=== PATIENT | female | born 1990 | race Caucasian/White ===

== ENCOUNTER 2017-01-22 14:34 | Emergency (ER) | payer OTHER ==
[~2017-01-22] VITALS: Ht 157.5 cm; Wt 76.0 kg
[~2017-01-22 14:34] MED LIST: METFORMIN; NO NEW MEDS
[2017-01-22 14:38] VITALS: Ht 157.5 cm; Wt 76.0 kg
[2017-01-22] MEDS ORDERED: ACETAMINOPHEN 325 MG TAB PO STA (15:42)
[2017-01-22 15:58] LABS: ADD SCAN DIFF NO
[2017-01-22 16:00] LABS: BASOPHILS % 0.4 % (0.0-2.0); EOSINOPHILS # 0.1 10^3/ul (0.0-0.5); EOSINOPHILS % 0.7 % (0.0-7.0); HEMATOCRIT 35.8 % (37.0-47.0); HEMOGLOBIN 13.1 g/dl (12.0-16.0); LYMPHOCYTES # 2.4 10^3/ul (0.8-2.9); LYMPHOCYTES % 33.1 % (15.0-51.0); MEAN CORPUSCULAR HEMOGLOBIN 31.8 pg (29.0-33.0); MEAN CORPUSCULAR HGB CONC 36.6 g/dl (32.0-37.0); MEAN CORPUSCULAR VOLUME 86.9 fl (82.0-101.0); MEAN PLATELET VOLUME 11.7 fl (7.4-10.4); MONOCYTE # 0.4 10^3/ul (0.3-0.9); MONOCYTES % 5.3 % (0.0-11.0); NEUTROPHIL # 4.4 10^3/ul (1.6-7.5); NEUTROPHILS % 60.2 % (39.0-77.0); PLATELET COUNT 264 10^3/UL (140-415); RED BLOOD COUNT 4.12 10^6/ul (4.20-5.40); WHITE BLOOD COUNT 7.2 10^3/ul (4.8-10.8)
[2017-01-22 16:08] LABS: ADD UMIC YES; UR ASCORBIC ACID NEGATIVE (NEGATIVE); UR BILIRUBIN (Dip) NEGATIVE (NEGATIVE); UR BLOOD (Dip) 2+ mg/dL (NEGATIVE); UR CLARITY CLEAR (CLEAR); UR COLOR STRAW (YELLOW); UR GLUCOSE (Dip) 3+ mg/dL (NEGATIVE); UR KETONES (Dip) NEGATIVE (NEGATIVE); UR LEUKOCYTE ESTERASE (Dip) TRACE Leu/ul (NEGATIVE); UR NITRITE (Dip) NEGATIVE (NEGATIVE); UR RBC 1 /HPF (0-5); UR SPECIFIC GRAVITY (Dip) 1.031 (1.003-1.030); UR SQUAMOUS EPITHELIAL CELL FEW /HPF (FEW); UR TOTAL PROTEIN (Dip) NEGATIVE (NEGATIVE); UR UROBILINOGEN (Dip) NEGATIVE (NEGATIVE)
--- NOTE | 2017-01-22 16:40 | RADRPT ---
PROCEDURE: OB Ultrasound. CLINICAL INDICATION: Positive test. Vaginal bleeding. TECHNIQUE: Ultrasound of the pelvis was performed with transabdominal and transvaginal sonography in the axial and sagittal planes. COMPARISON: No prior study is available for comparison. FINDINGS: There is no intrauterine gestational sac. The uterus measures 7.9 x 4.2 x 4.9 cm. Endometrial thic kness is 7.5 mm. There is no uterine enlargement or mass. The right ovary is not visualized. The left ovary appears normal measuring 3.3 x 2.8 x 3.0 cm. Color Doppler and pulsed Doppler sonography demonstrate normal flow to the left ovary There is no other pelvic mass or free fluid. IMPRESSION: 1. No intrauterine gestational sac. If the patient has a positive test, ectopic gestatio n cannot be excluded. 2. Right ovary not visualized. 3. Otherwise unremarkable study. RPTAT: QQ .Chris Shin MD, MD Date Time Electronically viewed and signed by .Chris Shin MD, MD on 01/22/2017 16:40 .R/
[2017-01-22 17:19] LABS: ALBUMIN 4.7 g/dl (3.3-4.9); ALBUMIN/GLOBULIN RATIO 1.74; BILIRUBIN,INDIRECT 0.2 mg/dl (0-1.1); BILIRUBIN,TOTAL 0.2 mg/dl (0.2-1.3); CREATININE 0.58 mg/dl (0.44-1.00); TOTAL PROTEIN 7.4 g/dl (6.1-8.1)
[2017-01-22] MEDS ORDERED: INSULIN LISPRO 100 UNIT/ML VIAL SC STA (17:27)
[2017-01-22] MEDS ORDERED: SOD CHLORIDE 0.9% 1,000 ML IV ONE (17:30)
--- NOTE | 2017-01-22 17:36 | ERD ---
ER Documentation Chief Complaint Date/Time DATE: 01/22/17 TIME: 17:31 Chief Complaint 3 weeks with spotting HPI Patient is a 26-year-old female who states she is who presents to the ED with vaginal bleeding 1 day. She states that she had a test done at home 2 weeks ago and showed a positive test however she has not followed up with an OB doctor. She also complains of mild pelvic pain. She states that she had sexual intercourse yesterday and developed bleeding afterwards. However she states that today her bleeding has decreased with spotting. Patient states that she has a history of gestational diabetes but does not have current diabetes denies polyuria, polydipsia or polyphagia. Denies chest pain or cough or shortness of breath. Denies abdominal pain, nausea, vomiting or diarrhea ROS All systems reviewed and are negative except as per history of present illness. Medications Home Meds Active Scripts Metformin* (Glucophage*) 500 Mg Tab, 500 MG PO BID, #20 TAB Prov:TITO ALVARENGA PA-C 01/22/17 Reported Medications [No New Meds] No Conflict Check 04/29/11 [Metformin] No Conflict Check 04/09/11 Allergies Allergies: Coded Allergies: No Known Allergy (Verified Allergy, Unknown, 04/29/11) PMhx/Soc History of Surgery: Yes ([facility]) Anesthesia Reaction: No Hx Neurological Disorder: No Hx Respiratory Disorders: No Hx Cardiac Disorders: No Hx Psychiatric Problems: No Hx Miscellaneous Medical Probl: No Hx Alcohol Use: No Hx Substance Use: No Hx Tobacco Use: No Smoking Status: Never smoker FmHx Family History: No coronary disease, No diabetes, No other Physical Exam Vitals Vital Signs Date Time Temp Pulse Resp B/P Pulse Ox O2 Delivery O2 Flow Rate FiO2 01/22/17 14:38 98.1 90 18 131/82 99 Physical Exam GENERAL: Well-developed, well-nourished female. Appears in no acute distress. HEAD: Normocephalic, atraumatic. EYES: Pupils are equally reactive bilaterally. EOMs grossly intact. No conjunctival erythema. ENT: Moist mucous membranes. No uvula deviation. No kissing tonsils. No exudates. NECK: Supple. No lymphadenopathy or thyromegaly. No meningismus. negative kernig. negative brudinski. LUNG: Clear to auscultation bilaterally. No rhonchi, wheezing, rales or coarse breath sounds. HEART: Regular rate and rhythm. No murmurs, rubs or gallops. ABDOMEN: No scars, ecchymosis or rashes noted. Soft, nontender, and nondistended. Positive bowel sounds in all four quadrants. No rebound tenderness , no guarding. (-) McBurneys point tenderness. No CVA tenderness. Mild bilateral pelvic pain BACK: No midline tenderness. Extremities: Equal pulses bilaterally. No peripheral clubbing, cyanosis or edema. No unilateral leg swelling. NEUROLOGIC: Alert and oriented. Moving all four extremities. 5/5 strength in all extremities. Normal speech. Steady gait. SKIN: Normal color. Warm and dry. No rashes or lesions. Capillary refill < 2 seconds Result Diagram: 01/22/17 1550 01/22/17 1650 Results 24 hrs Laboratory Tests Test 01/22/17 15:50 01/22/17 16:00 01/22/17 16:50 01/22/17 17:01 White Blood Count 7.210^3/ul Red Blood Count 4.1210^6/ul Hemoglobin 13.1g/dl Hematocrit 35.8% Mean Corpuscular Volume 86.9fl Mean Corpuscular Hemoglobin 31.8pg Mean Corpuscular Hemoglobin Concent 36.6g/dl Red Cell Distribution Width 12.0% Platelet Count 48191^3/UL Mean Platelet Volume 11.7fl Neutrophils % 60.2% Lymphocytes % 33.1% Monocytes % 5.3% Eosinophils % 0.7% Basophils % 0.4% Nucleated Red Blood Cells % 0.0/100WBC Neutrophils # 4.410^3/ul Lymphocytes # 2.410^3/ul Monocytes # 0.410^3/ul Eosinophils # 0.110^3/ul Basophils # 0.010^3/ul Nucleated Red Blood Cells # 0.010^3/ul Beta HCG, Quantitative < 2.4mIU/ml Urine Color STRAW Urine Clarity CLEAR Urine pH 5.0 Urine Specific [place] 1.031 Urine Ketones NEGATIVEmg/dL Urine Nitrite NEGATIVEmg/dL Urine Bilirubin NEGATIVEmg/dL Urine Urobilinogen NEGATIVEmg/dL Urine Leukocyte Esterase TRACELeu/ul Urine Microscopic RBC 1/HPF Urine Microscopic WBC 10/HPF Urine Squamous Epithelial Cells FEW/HPF Urine Hemoglobin 2+mg/dL Urine Glucose 3+mg/dL Urine Total Protein NEGATIVEmg/dl Sodium Level 136mmol/L Potassium Level 4.0mmol/L Chloride Level 100mmol/L Carbon Dioxide Level 27mmol/L Anion Gap 13 Blood Urea Nitrogen 11mg/dl Creatinine 0.58mg/dl Glucose Level 415mg/dl Calcium Level 9.0mg/dl Total Bilirubin 0.2mg/dl Direct Bilirubin 0.00mg/dl Indirect Bilirubin 0.2mg/dl Aspartate Amino Transf (AST/SGOT) 18IU/L Alanine Aminotransferase (ALT/SGPT) 24IU/L Alkaline Phosphatase 90IU/L Total Protein 7.4g/dl Albumin 4.7g/dl Globulin 2.70g/dl Albumin/Globulin Ratio 1.74 Bedside Glucose 315mg/dL Current Medications Medications (Trade) Dose Ordered Sig/Ricardo Route PRN Reason Start Time Stop Time Status Last Admin Dose Admin Acetaminophen 650 mg 650 mg ONCE STAT PO 01/22/17 15:42 01/22/17 15:46 DC 01/22/17 16:00 Sodium Chloride (NS) 1,000 ml @ 1,000 mls/hr Q1H ONCE IV 01/22/17 17:30 01/22/17 18:29 Insulin Human Lispro (Humalog) 10 unit ONCE STAT SC 01/22/17 17:27 01/22/17 17:29 DC Procedures/MDM ER COURSE: I kept the patient and/or family informed of laboratory and diagnostic imaging results throughout the emergency room course. EKG, MONITORS, & DIAGNOSTIC IMAGING: [place] [id number] Radiology Main Line: [phone] DIAGNOSTIC IMAGING REPORT Patient: TO GLEASON : 1990 Age: 26 Sex: F MR #: [id number] DOS: 01/22/17 1542 Ordering MD: TITO ALVARENGA PA-C Location: [facility] Room/Bed: PROCEDURE: OB Ultrasound. CLINICAL INDICATION: Positive test. Vaginal bleeding. TECHNIQUE: Ultrasound of the pelvis was performed with transabdominal and transvaginal sonography in the axial and sagittal planes. COMPARISON: No prior study is available for comparison. FINDINGS: There is no intrauterine gestational sac. The uterus measures 7.9 x 4.2 x 4.9 cm. Endometrial thickness is 7.5 mm. There is no uterine enlargement or mass. The right ovary is not visualized. The left ovary appears normal measuring 3.3 x 2.8 x 3.0 cm. Color Doppler and pulsed Doppler sonography demonstrate normal flow to the left ovary There is no other pelvic mass or free fluid. IMPRESSION: 1. No intrauterine gestational sac. If the patient has a positive test, ectopic gestation cannot be excluded. 2. Right ovary not visualized. 3. Otherwise unremarkable study. RPTAT: QQ .Chris Shin MD, Date Time Electronically viewed and signed by .Chris Shin MD, on 01/22/2017 16:40 .R/ CC: TITO ALVARENGA PA-C LAB INTERPRETATION: CBC showed no evidence of systemic infection or severe anemia. CMP showed no evidence of, severe acidosis, alkalosis, renal failure, or liver disease. Lipase showed no evidence of acute pancreatitis. Her UA showed 3+ glucose with trace leukocytes and hemoglobinuria BHCG: <2.4 RH: B+ MEDICAL DECISION MAKING: This is a 26-year-old female who presents with vaginal bleeding. Vital signs were reviewed. Patient is afebrile. Patient is not hypoxic. Patient is nontoxic or ill-appearing. Her ultrasound of by radiologist shows no intrauterine gestational sac. Her beta hCG is undetectable at this point patient does not show signs of . I consulted with my supervising physician Dr. Novoa who reviewed all imaging report and laboratory studies. Patient's Accu-Chek was 315. CMP was ordered and showed a blood glucose of 415. Patient does not have ketones in her urine and her carbon dioxide, and anion gap was within normal limits. At this point, i have low suspicion for DKA , HONK. IV fluids, 10 units of Humalog subcutaneous were ordered. However patient left the room and was unable to be found for the next 20 minutes. At this point patient will be handed to the next provider, Michelle Iverson PA-C who will review her labs and redo accuchec. After administration of fluids, glucose will be rechecked. Patient is stable at transfer to the next provider Departure Diagnosis: Primary Impression: Vaginal bleeding Additional Impression: Diabetes mellitus, new onset Condition: Stable TITO ALVARENGA PA-C Jan 22, 2017 17:36
[2017-01-22] MEDS ORDERED: METF500T4 PO (17:55)
[2017-01-22 19:50] VITALS: BP 119/66; PULSE 79; RESP 18; TEMP 97.9
== END 2017-01-22 19:53 | disposition home or self-care (01) ==
LOC: FTE 14:34
DX: O20.9 Hemorrhage in early pregnancy, unspecified (principal); O24.419 Gestational diabetes mellitus in pregnancy, unspecified control; R10.2 Pelvic and perineal pain; Z3A.01 Less than 8 weeks gestation of pregnancy
CPT/HCPCS: 76801; 76817; 80053; 81001; 82962; 84702; 85025; 86900; 86901; 96372; J1815; J7030; Z7502; Z7610

== ENCOUNTER 2017-02-17 22:06 | Emergency (ER) | payer OTHER ==
[~2017-02-17] VITALS: Ht 152.4 cm; Wt 62.5 kg
[~2017-02-17 22:06] MED LIST changes: +METF500T4 PO
[2017-02-17 22:12] VITALS: Ht 152.4 cm; Wt 62.5 kg
[2017-02-17] MEDS ORDERED: SOD CHLORIDE 0.9% 1,000 ML IV STA (22:52)
[2017-02-17] MEDS ORDERED: ONDANSETRON 4 MG INJ IV STA (22:52)
[2017-02-17] MEDS ORDERED: ACETAMINOPHEN 500 MG TAB PO STA (22:52)
--- NOTE | 2017-02-17 23:11 | ERD ---
ER Documentation Chief Complaint Date/Time DATE: 02/17/17 TIME: 22:59 Chief Complaint HEADACHE, DIZZINESS, BLURRED VISION, N/V/D, HIGH BG SINCE YESTERDAY HPI 26 year-old female presents here in emergency department for complaints of nausea vomiting diarrhea headache dizziness blurred vision that started yesterday, patient checked blood sugar this morning and it was elevated at the 400s, patient has been diagnosed to possibly have diabetes, patient was placed on metformin 1 month ago. Patient has not seen primary care doctor yet. Patient was taking metformin for 10 days. Patient is diagnosed with gestational diabetes before. ROS All systems reviewed and are negative except as per history of present illness. Medications Home Meds Active Scripts Tramadol HCl (Tramadol HCl) 50 Mg Tablet, 50 MG PO Q6 for SEVERE PAIN LEVEL 7-10 , #20 TAB Prov:MERARY MCCARTHY NP 02/18/17 Ondansetron (Ondansetron Odt) 4 Mg Tab.rapdis, 4 MG PO Q8 Y for NAUSEA AND/OR VOMITING, #30 TAB Prov:MERARY MCCARTHY NP 02/18/17 Dicyclomine Hcl* (Bentyl*) 10 Mg Capsule, 20 MG PO QID, #20 CAP Prov:MERARY MCCARTHY NP 02/18/17 Ibuprofen* (Motrin*) 600 Mg Tab, 600 MG PO Q6H Y for PAIN AND OR ELEVATED TEMP, #30 TAB Prov:MERARY MCCARTHY NP 02/18/17 Metformin* (Glucophage*) 500 Mg Tab, 500 MG PO BID, #20 TAB Prov:TITO ALVARENGA PA-C 01/22/17 Reported Medications [No New Meds] No Conflict Check 04/29/11 [Metformin] No Conflict Check 04/09/11 Allergies Allergies: Coded Allergies: No Known Allergy (Verified Allergy, Unknown, 04/29/11) PMhx/Soc History of Surgery: Yes (cholecystectomy, c/s) Anesthesia Reaction: No Hx Neurological Disorder: No Hx Respiratory Disorders: No Hx Cardiac Disorders: No Hx Psychiatric Problems: No Hx Miscellaneous Medical Probl: Yes (DM) Hx Alcohol Use: No Hx Substance Use: No Hx Tobacco Use: No Smoking Status: Never smoker FmHx Family History: No coronary disease, No diabetes, No other Physical Exam Vitals Vital Signs Date Time Temp Pulse Resp B/P Pulse Ox O2 Delivery O2 Flow Rate FiO2 02/18/17 01:34 98.1 92 20 99/55 97 Room Air 02/17/17 22:12 99.0 105 18 136/93 96 Physical Exam GENERAL: The patient is well developed and appropriate for usual state of health, in no apparent distress. CHEST: Clear to auscultation bilaterally. There are no rales, wheezes or rhonchi. HEART: Regular rate and rhythm. No murmurs, clicks, rubs or gallops. No S3 or S4. ABDOMEN: Soft, nontender and nondistended. Hyperactive bowel sounds. No rebound or guarding. No gross peritonitis. No gross organomegaly or masses. No Kendrick sign or McBurney point tenderness. BACK: No midline or flank tenderness. EXTREMITIES: Equal pulses bilaterally. There is no peripheral clubbing, cyanosis or edema. No focal swelling or erythema. Full range of motion. Grossly neurovascularly intact. NEURO: Alert and oriented. Cranial nerves 2-12 intact. Motor strength in all 4 extremities with 5/5 strength. Sensation grossly intact. Normal speech and gait. SKIN: There is no apparent rash or petechia. The skin is warm and dry. HEMATOLOGIC AND LYMPHATIC: There is no evidence of excessive bruising or lymphedema. No gross cervical, axillary, or inguinal lymphadenopathy. Result Diagram: 02/17/178 02/17/178 Results 24 hrs Laboratory Tests Test 02/17/17 22:18 02/17/17 23:08 02/18/17 00:33 Bedside Glucose 263mg/dL White Blood Count 5.210^3/ul Red Blood Count 4.6710^6/ul Hemoglobin 14.7g/dl Hematocrit 39.7% Mean Corpuscular Volume 85.0fl Mean Corpuscular Hemoglobin 31.5pg Mean Corpuscular Hemoglobin Concent 37.0g/dl Red Cell Distribution Width 11.8% Platelet Count 36345^3/UL Mean Platelet Volume 11.9fl Neutrophils % 71.6% Lymphocytes % 22.0% Monocytes % 5.8% Eosinophils % 0.2% Basophils % 0.2% Nucleated Red Blood Cells % 0.0/100WBC Neutrophils # 3.710^3/ul Lymphocytes # 1.110^3/ul Monocytes # 0.310^3/ul Eosinophils # 0.010^3/ul Basophils # 0.010^3/ul Nucleated Red Blood Cells # 0.010^3/ul Sodium Level 139mmol/L Potassium Level 3.7mmol/L Chloride Level 98mmol/L Carbon Dioxide Level 23mmol/L Anion Gap 22 Blood Urea Nitrogen 11mg/dl Creatinine 0.46mg/dl Glucose Level 279mg/dl Calcium Level 8.9mg/dl Total Bilirubin 0.5mg/dl Direct Bilirubin 0.00mg/dl Indirect Bilirubin 0.5mg/dl Aspartate Amino Transf (AST/SGOT) 33IU/L Alanine Aminotransferase (ALT/SGPT) 27IU/L Alkaline Phosphatase 81IU/L Total Protein 8.3g/dl Albumin 4.5g/dl Globulin 3.80g/dl Albumin/Globulin Ratio 1.18 Lipase 87U/L Urine Color YELLOW Urine Clarity SLIGHTLY CLOUDY Urine pH 5.0 Urine Specific [place] 1.030 Urine Ketones 1+mg/dL Urine Nitrite NEGATIVEmg/dL Urine Bilirubin NEGATIVEmg/dL Urine Urobilinogen NEGATIVEmg/dL Urine Leukocyte Esterase NEGATIVELeu/ul Urine Microscopic RBC 0/HPF Urine Microscopic WBC 1/HPF Urine Squamous Epithelial Cells FEW/HPF Urine Mucus FEW/HPF Urine Hemoglobin NEGATIVEmg/dL Urine Glucose 3+mg/dL Urine Total Protein NEGATIVEmg/dl Current Medications Medications (Trade) Dose Ordered Sig/Ricardo Route PRN Reason Start Time Stop Time Status Last Admin Dose Admin Sodium Chloride (NS) 1,000 ml @ 1,000 mls/hr Q1H STAT IV 02/17/17 22:52 02/17/17 23:51 DC 02/17/17 23:17 Ondansetron HCl (Zofran Inj) 4 mg ONCE STAT IV 02/17/17 22:52 02/17/17 22:54 DC 02/17/17 23:17 Acetaminophen (Tylenol Tab) 500 mg ONCE STAT PO 02/17/17 22:52 02/17/17 22:54 DC Ketorolac Tromethamine (Toradol) 30 mg ONCE STAT IV 02/18/17 00:14 02/18/17 00:15 DC 02/18/17 00:35 Normal saline IV bolus was given here in emergency department for rehydration, patient tolerated IV fluids.Patient was given Zofran here in the emergency department. After treatment, patient was able to tolerate po fluids here in the emergency department without any vomiting. There is no signs and symptoms of dehydration. Patient was given medicines for fever control here in the emergency department. After treatment, patient temperature improved and lower. Patient appears well and is hemodynamically stable. Procedures/MDM Medical Decision Making: Patient's symptoms of most likely consistent with viral gastroenteritis with elevated blood sugar. No symptoms of any diabetic ketoacidosis. At this time, the sugar is controlled. Patient verbalized feeling much better. Patient is not actively vomiting. There is low suspicion for abdominal emergencies at this time. Patients abdominal exam is normal at this time. Patients radiology exam does not show any abdominal emergencies at this time. There is low suspicion for appendicitis, cholecystitis, abdominal aortic aneurysms or peritonitis at this time. There is low suspicion for sepsis. Patient appears well and is hemodynamically stable. Patient's diabetic symptoms have stabilized here in the emergency department and appear appropriate for outpatient management. No evidence at this time of diabetic ketoacidosis, hyperosmolar syndrome, or severe systemic infection. Disposition: Home. Condition: Stable Prescription Zofran, Bentyl, ibuprofen, tramadol Instructions: Patient is advised to take medications as prescribed. Patient is advised to rest, increase fluid intake and do brat diet for next 1-2 days and progress as tolerated. Patient is advised that if symptoms are worse, severe abdominal pain, uncontrolled vomiting, high fever, severe flank pain, worst signs and symptoms, to return to the emergency department immediately. Otherwise, patient can follow up with primary care doctor in 5-7 days. Departure Diagnosis: Primary Impression: Hyperglycemia Additional Impression: Viral gastroenteritis Condition: Stable Patient Instructions: Gastroenteritis, Viral (6Y-Adult), Hyperglycemia (High Blood Sugar) Additional Instructions: Patient is advised to take medications as prescribed. Patient is advised to rest, increase fluid intake and do brat diet for next 1-2 days and progress as tolerated. Patient is advised that if symptoms are worse, severe abdominal pain , uncontrolled vomiting, high fever, severe flank pain, worst signs and symptoms , to return to the emergency department immediately. Otherwise, patient can follow up with primary care doctor in 5-7 days. MERARY MCCARTHY NP Feb 17, 2017 23:10
[2017-02-17 23:44] LABS: BASOPHILS % 0.2 % (0.0-2.0); EOSINOPHILS % 0.2 % (0.0-7.0); HEMATOCRIT 39.7 % (37.0-47.0); HEMOGLOBIN 14.7 g/dl (12.0-16.0); LYMPHOCYTES # 1.1 10^3/ul (0.8-2.9); MEAN CORPUSCULAR HEMOGLOBIN 31.5 pg (29.0-33.0); MEAN PLATELET VOLUME 11.9 fl (7.4-10.4); MONOCYTE # 0.3 10^3/ul (0.3-0.9); MONOCYTES % 5.8 % (0.0-11.0); NEUTROPHIL # 3.7 10^3/ul (1.6-7.5); NEUTROPHILS % 71.6 % (39.0-77.0); PLATELET COUNT 231 10^3/UL (140-415); RED BLOOD COUNT 4.67 10^6/ul (4.20-5.40); RED CELL DISTRIBUTION WIDTH 11.8 % (11.5-14.5); WHITE BLOOD COUNT 5.2 10^3/ul (4.8-10.8)
[2017-02-18 00:10] LABS: ALBUMIN 4.5 g/dl (3.3-4.9); ALBUMIN/GLOBULIN RATIO 1.18; BILIRUBIN,INDIRECT 0.5 mg/dl (0-1.1); BILIRUBIN,TOTAL 0.5 mg/dl (0.2-1.3); CALCIUM 8.9 mg/dl (8.4-10.2); CREATININE 0.46 mg/dl (0.44-1.00); POTASSIUM 3.7 mmol/L (3.5-5.1); TOTAL PROTEIN 8.3 g/dl (6.1-8.1)
[2017-02-18] MEDS ORDERED: KETOROLAC 30 MG INJ IV STA (00:14)
[2017-02-18 00:57] LABS: ADD UMIC NO; UR ASCORBIC ACID NEGATIVE (NEGATIVE); UR BILIRUBIN (Dip) NEGATIVE (NEGATIVE); UR BLOOD (Dip) NEGATIVE (NEGATIVE); UR CLARITY SLIGHTLY CLOUDY (CLEAR); UR COLOR YELLOW (YELLOW); UR GLUCOSE (Dip) 3+ mg/dL (NEGATIVE); UR KETONES (Dip) 1+ mg/dL (NEGATIVE); UR LEUKOCYTE ESTERASE (Dip) NEGATIVE Leu/ul (NEGATIVE); UR MUCUS FEW /HPF (NONE SEEN); UR NITRITE (Dip) NEGATIVE (NEGATIVE); UR RBC 0 /HPF (0-5); UR SQUAMOUS EPITHELIAL CELL FEW /HPF (FEW); UR TOTAL PROTEIN (Dip) NEGATIVE (NEGATIVE); UR UROBILINOGEN (Dip) NEGATIVE (NEGATIVE)
[2017-02-18] MEDS ORDERED: IBUP-1542 PO (01:09)
[2017-02-18] MEDS ORDERED: ONDA4TAB14 PO (01:09)
[2017-02-18] MEDS ORDERED: DICY10CA60 PO (01:09)
[2017-02-18] MEDS ORDERED: TRAM50TA2 PO (01:09)
[2017-02-18 01:34] VITALS: BP 99/55; PULSE 92; RESP 20; TEMP 98.1
== END 2017-02-18 01:10 | disposition home or self-care (01) ==
LOC: FTE 22:06
DX: E11.65 Type 2 diabetes mellitus with hyperglycemia (principal); A08.4 Viral intestinal infection, unspecified; Z79.84 Long term (current) use of oral hypoglycemic drugs
CPT/HCPCS: 80053; 81001; 82962; 83690; 85025; J1885; J2405; J7030; Z7610; 36415; 81003; 96374; 96375